=== PATIENT | male | born 1975 | race Caucasian/White ===

== ENCOUNTER 2019-10-07 15:12 | Observation (INO) ==
[2019-10-07] MEDS ORDERED: ACETAMINOPHEN 325 MG TAB PO PRN (18:41)
[2019-10-07] MEDS ORDERED: ONDANSETRON INJ 2 MG/ML 2 ML VIAL IV PRN (18:41)
[2019-10-07] MEDS ORDERED: SODIUM CHLORIDE 0.9% 250 ML IV PRN (18:52)
--- NOTE | 2019-10-07 19:06 | History & Physical Report ---
Date of Service October 07, 2019 Assessment & Plan (1) Anemia: SYmptomatic anemia, etiology uncertain -Check CBC, LFTs, Iron studies, LDH, Haptoglobin, Smear and Reticulocyte count -Check fecal occult blood -Transfuse 2U PRBCs after studies obtained Present on Admission?: Yes (2) Pneumonia: Patient afebrile, hemodynamically stable respiratory status -Ceftriaxone/Azithromycin for presumed CAP -Cultures sent from [facility]. Antibiotic initiated at [facility] Present on Admission?: Yes (3) Opiate addiction: Patient on Methadone 75mg po daily. -Dose to be verified in AM -Continue Methadone Present on Admission?: Yes (4) History of intestinal obstruction: Noted. Patient is eating well and passing gas and BMs. He states that food often transits slowly through his bowels and sometimes feels as if it is getting stuck. He requests a soft diet. -Soft diet -Monitor for obstruction Present on Admission?: Yes (5) Hypertension: Blood pressure stable -Continue Lisinopril 10mg po daily F/E/N - Heplock. Electrolytes WNL. 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 He developed a bowel obstruction at age 27 and another at age 34, both requiring surgical intervention. He was seen at the ER at [facility] today with complaint of SOB/PYLE, fatigue, weakness, malaise, decreased exercise tolerance. He has occasional chest heaviness with exertion. Symptoms have been persistent over the last 3-4 weeks. Today at work he felt like he was having a panic attack. He became SOB and felt like he was going to pass out. His symptoms slowly resolved over time. Additionally, patient has had one week of fevers/chills/cough productive for thick, green sputum as well as night sweats. He was seen by his PCP on Thursday and was prescribed Azithromycin and Prednisone with minimal improvement. He had bloodwork obtained and was later instructed to come to the ER due to low Hgb Allergies Allergy/AdvReac Type Severity Reaction Status Date / Time No Known Allergies Allergy Unverified 08/26/16 07:01 Home Medications Home Medications Medication Instructions Recorded Confirmed Type FEXOFENADINE HCL (BETTY ALLERGY) 1 tab PO DAILY 14 Days #14 tab 08/26/16 10/07/19 History MONTELUKAST SODIUM (SINGULAIR) 10 mg PO DAILY #0 tab 08/26/16 10/07/19 History Methadone Hcl (Dolophine) 75 mg PO DAILY #0 tab 08/26/16 10/07/19 History Trazodone HCl 50 mg PO HS #0 08/26/16 10/07/19 History Miralax 17 packet PO DAILY 10/07/19 10/07/19 History Prilosec 20 mg PO DAILY 10/07/19 10/07/19 History fluoxetine 20 mg PO DAILY 10/07/19 10/07/19 History lisinopril 10 mg PO DAILY 10/07/19 10/07/19 History Past Med/Surg History Medical History (Updated 10/07/19 @ 22:50 by Trudy Miranda DO) Atresia congenital, colon History of intestinal obstruction Hypertension Opiate addiction On Methadone since 2011 Surgical History (Updated 10/07/19 @ 22:40 by Trudy Miranda DO) History of abdominal surgery Family History (Updated 10/07/19 @ 22:40 by Trudy Miranda DO) Sister Anemia Iron deficiency Other Cancer Diabetes Heart disease Hypertension Social History Preferred Language: Lebanese Communication Ability: Effective Commodity Trader Required: No Beliefs That Will Affect Care: None Current Living Situation: Spouse and Family Other Information That Helps Us Care for You: No Feels Safe at Home: Yes Safety Concerns: Feels Safe At This Time Smoking Status: Former smoker Hx Alcohol Use: No Review of Systems Review of Systems: All systems reviewed & are unremarkable except as noted in HPI & below Physical Exam Physical Exam: General: patient resting comfortably, NAD, non-toxic in appearance, AA&O x 4 Skin: warm, dry, intact, no rashes or lesions, +Pallor of skin, conjunctiva and oral mucosa HEENT: NC/AT, PERRL, EOMI, anicteric sclera, conjunctiva without injection, external ear normal to inspection and nontender, nares patent, moist mucus membranes, dentition intact, no oropharyngeal lesions, neck supple, trachea midline, no LAD, no thyromegaly, no JVD Heart: +S1/S2, regular, no r/g, 2/6 NAVID at LSB Lungs: equal air entry bilaterally, no rales/rhonchi/wheezes Abd: +BS, soft, NT/ND, no masses/palpable liver edge, smooth Ext: warm, 2+ pulses in UE/LE bilaterally, no clubbing/cyanosis or edema Neuro: nonfocal, patient AA&O x 4, speech intact, no facial droop, moving all extremities on command with equal strength 5/5 Results & Data Vital Signs (Past 12 Hours) Vital Signs Temp Resp BP Pulse Ox 10/07/19 17:35 37.5 C 16 135/83 99 Laboratory Results Lab Results 10/07/19 10/07/19 10/07/19 Range/Units 19:30 19:31 19:31 Reticulocyte % (Auto) 2.1 H (0.5-2.0) % Reticulocyte # 0.08 (0.02-0.10) 10^6/uL PT 11.4 (9.0-12.0) Seconds INR 1.1 (0.9-1.1) Sodium 137 (136-145) mmol/L Potassium 3.6 (3.5-5.1) mmol/L Chloride 104 (98-107) mmol/L Carbon Dioxide 29 (21-32) mmol/L Anion Gap 4.0 (3-11) BUN 11 (7-18) mg/dl Creatinine 0.95 (0.6-1.4) mg/dl Est Cr Clr Drug Dosing Not Reportable Est GFR ( Amer) 114.0 Est GFR (Non-Af Amer) 98.3 BUN/Creatinine Ratio 11.4 (10-20) Glucose 131 H (70-99) mg/dl Calcium 9.0 (8.5-10.1) mg/dl Phosphorus 3.8 (2.5-4.9) mg/dl Magnesium 2.2 (1.8-2.4) mg/dl Iron 358 H (35-175) mcg/dl TIBC 438 (250-450) mcg/dl Transferrin 286 (200-360) mg/dl Transferrin % Sat 89 H (20-50) % Ferritin 4.5 L (8-388) ng/ml Total Bilirubin 0.8 (0.2-1) mg/dl Direct Bilirubin 0.2 (0-0.2) mg/dl AST 10 L (15-37) U/L ALT 21 (12-78) U/L Alkaline Phosphatase 63 (45-117) U/L Lactate Dehydrogenase (87-241) U/L Troponin I < 0.015 (0-0.045) ng/ml Total Protein 7.9 (6.4-8.2) gm/dl Albumin 3.5 (3.4-5.0) gm/dl Urine Color Urine Appearance (Clear) Urine pH (4.5-7.5) Ur Specific [place] (1.000-1.030) Urine Protein (Negative) Urine Glucose (UA) (Negative) Urine Ketones (Negative) Urine Blood (Negative) Urine Nitrite (Negative) Urine Bilirubin (Negative) Urine Urobilinogen (Negative) Ur Leukocyte Esterase (Negative) Blood Type Blood Type Recheck Antibody Screen Crossmatch 10/07/19 10/07/19 10/07/19 Range/Units 19:31 19:31 20:35 Reticulocyte % (Auto) (0.5-2.0) % Reticulocyte # (0.02-0.10) 10^6/uL PT (9.0-12.0) Seconds INR (0.9-1.1) Sodium (136-145) mmol/L Potassium (3.5-5.1) mmol/L Chloride (98-107) mmol/L Carbon Dioxide (21-32) mmol/L Anion Gap (3-11) BUN (7-18) mg/dl Creatinine (0.6-1.4) mg/dl Est Cr Clr Drug Dosing Est GFR ( Amer) Est GFR (Non-Af Amer) BUN/Creatinine Ratio (10-20) Glucose (70-99) mg/dl Calcium (8.5-10.1) mg/dl Phosphorus (2.5-4.9) mg/dl Magnesium (1.8-2.4) mg/dl Iron (35-175) mcg/dl TIBC (250-450) mcg/dl Transferrin (200-360) mg/dl Transferrin % Sat (20-50) % Ferritin (8-388) ng/ml Total Bilirubin (0.2-1) mg/dl Direct Bilirubin (0-0.2) mg/dl AST (15-37) U/L ALT (12-78) U/L Alkaline Phosphatase (45-117) U/L Lactate Dehydrogenase 156 (87-241) U/L Troponin I (0-0.045) ng/ml Total Protein (6.4-8.2) gm/dl Albumin (3.4-5.0) gm/dl Urine Color Yellow Urine Appearance Clear (Clear) Urine pH 7.0 (4.5-7.5) Ur Specific [place] 1.022 (1.000-1.030) Urine Protein Negative (Negative) Urine Glucose (UA) Negative (Negative) Urine Ketones Negative (Negative) Urine Blood Negative (Negative) Urine Nitrite Negative (Negative) Urine Bilirubin Negative (Negative) Urine Urobilinogen Negative (Negative) Ur Leukocyte Esterase Negative (Negative) Blood Type B Positive Blood Type Recheck Antibody Screen NEGATIVE Crossmatch See Detail 10/07/19 Range/Units 20:43 Reticulocyte % (Auto) (0.5-2.0) % Reticulocyte # (0.02-0.10) 10^6/uL PT (9.0-12.0) Seconds INR (0.9-1.1) Sodium (136-145) mmol/L Potassium (3.5-5.1) mmol/L Chloride (98-107) mmol/L Carbon Dioxide (21-32) mmol/L Anion Gap (3-11) BUN (7-18) mg/dl Creatinine (0.6-1.4) mg/dl Est Cr Clr Drug Dosing Est GFR ( Amer) Est GFR (Non-Af Amer) BUN/Creatinine Ratio (10-20) Glucose (70-99) mg/dl Calcium (8.5-10.1) mg/dl Phosphorus (2.5-4.9) mg/dl Magnesium (1.8-2.4) mg/dl Iron (35-175) mcg/dl TIBC (250-450) mcg/dl Transferrin (200-360) mg/dl Transferrin % Sat (20-50) % Ferritin (8-388) ng/ml Total Bilirubin (0.2-1) mg/dl Direct Bilirubin (0-0.2) mg/dl AST (15-37) U/L ALT (12-78) U/L Alkaline Phosphatase (45-117) U/L Lactate Dehydrogenase (87-241) U/L Troponin I (0-0.045) ng/ml Total Protein (6.4-8.2) gm/dl Albumin (3.4-5.0) gm/dl Urine Color Urine Appearance (Clear) Urine pH (4.5-7.5) Ur Specific [place] (1.000-1.030) Urine Protein (Negative) Urine Glucose (UA) (Negative) Urine Ketones (Negative) Urine Blood (Negative) Urine Nitrite (Negative) Urine Bilirubin (Negative) Urine Urobilinogen (Negative) Ur Leukocyte Esterase (Negative) Blood Type Blood Type Recheck B Positive Antibody Screen Crossmatch FROM [facility]: CXR - no evidence of acute chest abnormality CT Angio Chest, CT Abd and Pelvis - ill-defined nodular ground-glass infiltrate in LLL and lingula concerning for infectious process. Dilated small bowel loops in min abdomen with abrupt transition along the anterior abdominal wall in the infraumbilical region suggesting anterior abdominal wall adhesions. Less prominent than previous study. No retained contrast in small bowel. Stable left supraumbilical hernia. No hematoma or ascites. Hgb on 06/24/17 - 11.5 Hgb today - 5.5, Hct=22, MCV=60.6, Emm=536 Lactate = 2.2 ESR = 10 Flu=negative Diagnostic Findings XR chest 1V portable HISTORY: 44 years-old Male SOB acute shortness of breath COMPARISON: CTA of the chest of same day from outside hospital TECHNIQUE: Portable AP view of the chest FINDINGS: Cardiac silhouette is normal. Patchy left basilar opacities are better seen on comparison CTA. No pneumothorax, pleural effusion or overt pulmonary edema. The right lung is clear. Bones appear grossly intact. IMPRESSION: Patchy left basilar opacities redemonstrated suggestive of pneumonia. ACT 112: Negative or not required by law. The above report was generated using voice recognition software. It may contain grammatical, syntax or spelling errors. Electronically signed by: Riki Melara M.D. 10/07/2019 7:43 PM Dictated: 10/07/191937 Transcribed: 10/07/191937 ECG Additional Comments: NSR at 67, normal axis and intervals, no acute ischemic changes, no prior studies for comparison Code Status & VTE Plan Code Status FULL VTE Prophylaxis Plan VTE Prophylaxis will be ordered: No Reason for no VTE drug order: Treatment not indicated Reason for no VTE mechanical prophylaxis: Treatment not indicated PG Care Time/CCT Total # of Minutes Spent Total Time Spent with Patient: Total time spent is greater than 50% in coordination of care (as documented) at patient's floor/unit and/or counseling patient: Coding Level of Care Code 97748 Initial Inpt Care Lvl 3 Diagnoses Anemia D64.9 Anemia type: unspecified type Pneumonia J18.9 Pneumonia type: due to unspecified organism Laterality: left Lung location: lower lobe of lung Opiate addiction F11.21 Substance use status: in remission History of intestinal obstruction Z87.19 Hypertension I10 Hypertension type: unspecified (1) Anemia Anemia type: unspecified type Qualified Code(s): D64.9 - Anemia, unspecified (2) Pneumonia Pneumonia type: due to unspecified organism Laterality: left Lung location: lower lobe of lung Qualified Code(s): J18.9 - Pneumonia, unspecified organism (3) Opiate addiction Substance use status: in remission Qualified Code(s): F11.21 - Opioid dependence, in remission (4) Hypertension Hypertension type: unspecified Qualified Code(s): I10 - Essential (primary) hypertension
--- NOTE | 2019-10-07 19:44 | XRay Report ---
XR chest 1V portable HISTORY: 44 years-old Male SOB acute shortness of breath COMPARISON: CTA of the chest of same day from outside hospital TECHNIQUE: Portable AP view of the chest FINDINGS: Cardiac silhouette is normal. Patchy left basilar opacities are better seen on comparison CTA. No pne umothorax, pleural effusion or overt pulmonary edema. The right lung is clear. Bones appear grossly i ntact. IMPRESSION: Patchy left basilar opacities redemonstrated suggestive of pneumonia. ACT 112: Negative or not required by law. The above report was generated using voice recognition software. It may contain grammatical, syntax o r spelling errors. Electronically signed by: Riki Melara M.D. 10/07/2019 7:43 PM
[2019-10-07 19:53] LABS: INR 1.1 (0.9-1.1); Prothrombin Time 11.4 Seconds (9.0-12.0)
[2019-10-07 20:00] LABS: Alanine Aminotransferase 21 U/L (12-78); Albumin Level 3.5 gm/dl (3.4-5.0); Aspartate Aminotransferase 10 U/L (15-37); BUN Creatinine Ratio 11.4 (10-20); Bilirubin Direct 0.2 mg/dl (0-0.2); Blood Urea Nitrogen 11 mg/dl (7-18); Carbon Dioxide 29 mmol/L (21-32); Chloride 104 mmol/L (98-107); Est GFR (Non-African American) 98.3; Glucose 131 mg/dl (70-99); Magnesium 2.2 mg/dl (1.8-2.4); Phosphorus 3.8 mg/dl (2.5-4.9); Potassium 3.6 mmol/L (3.5-5.1); Sodium 137 mmol/L (136-145)
[2019-10-07 20:03] LABS: Alkaline Phosphatase 63 U/L (45-117); Bilirubin,Total 0.8 mg/dl (0.2-1); Ferritin 4.5 ng/ml (8-388); Iron 358 mcg/dl (35-175); Total Iron Binding Capacity 438 mcg/dl (250-450); Total Protein 7.9 gm/dl (6.4-8.2); Transferrin 286 mg/dl (200-360); Transferrin Percent Saturation 89 % (20-50); Troponin I < 0.015 ng/ml (0-0.045)
[2019-10-07 20:08] LABS: Reticulocyte % 2.1 % (0.5-2.0); Reticulocytes # 0.08 10^6/uL (0.02-0.10)
[2019-10-07 20:47] LABS: Appearance Urine Clear (Clear); Bilirubin Urine Negative (Negative); Blood Urine Negative (Negative); Color Urine Yellow; Glucose Urine UA Negative (Negative); Ketones Urine Negative (Negative); Leukocyte Esterase Urine Negative (Negative); Nitrite Urine Negative (Negative); Protein Urine Negative (Negative); Specific Gravity Urine 1.022 (1.000-1.030); Urobilinogen Urine Negative (Negative)
[2019-10-07] MEDS ORDERED: TRAZODONE HCL 50 MG TAB PO SCH (21:00)
[2019-10-08 07:34] LABS: Hematocrit (blood only) 27.6 % (42-52); Hemoglobin 7.9 g/dL (14.0-18.0); Mean Corpuscular Hemoglobin 18.3 pg (25-34); Mean Corpuscular Hgb Conc 28.6 g/dL (32-36); Mean Platelet Volume 8.8 fL (7.4-10.4); Nucleated RBC # (auto) 0.07 K/uL (0-0); Nucleated RBC % (auto) 1.3 %; Platelet Count 428 K/uL (130-400); RDW Coefficient of Variation 26.1 % (11.5-14.5); RDW Standard Deviation 59.2 fL (36.4-46.3); Red Blood Count 4.31 M/uL (4.7-6.1); White Blood Count 5.55 K/uL (4.8-10.8)
[2019-10-08 07:46] LABS: Basophils # (auto) 0.02 K/uL (0-0.2); Basophils % (auto) 0.4 %; Eosinophils # (auto) 0.16 K/uL (0-0.5); Eosinophils % (auto) 2.9 %; Hypochromasia Present; Immature Granulocytes # (auto) 0.02 K/uL (0.00-0.02); Immature Granulocytes % (auto) 0.4 %; Lymphocytes # (auto) 1.47 K/uL (1.2-3.4); Lymphocytes % (auto) 26.5 %; Microcytosis Present; Monocytes # (auto) 0.71 K/uL (0.11-0.59); Monocytes % (auto) 12.8 %; Neutrophils # (auto) 3.17 K/uL (1.4-6.5); Schistocytes 1+
[2019-10-08] MEDS ORDERED: cefTRIAXone SODIUM 1,000 MG in DEXTROSE 5% 50 ML IV SCH (09:00)
[2019-10-08] MEDS ORDERED: METHADONE ORAL SOLN 2 MG/ML PO SCH (09:00)
[2019-10-08] MEDS ORDERED: FLUOXETINE HCL 20 MG CAP PO SCH (09:00)
[2019-10-08] MEDS ORDERED: METHADONE HCL 10 MG TAB PO SCH (09:00)
[2019-10-08] MEDS ORDERED: PANTOprazole 40 MG TAB PO SCH (09:00)
[2019-10-08] MEDS ORDERED: AZITHROMYCIN 250 MG in DEXTROSE 5% 250 ML IV SCH (09:00)
[2019-10-08] MEDS ORDERED: POLYETHYLENE (MIRALAX) 17 GM PACK PO SCH (09:00)
[2019-10-08] MEDS ORDERED: MONTELUKAST SODIUM 10 MG TABLET PO SCH (09:00)
[2019-10-08] MEDS ORDERED: lisinopriL 10 MG TAB PO SCH (09:00)
[2019-10-08] MEDS ORDERED: FEXOFENADINE HCL 180 MG TAB PO SCH ×2 (09:00→21:00)
--- NOTE | 2019-10-08 13:17 | Gastrointestinal Consultation ---
Date of Consultation October 08, 2019 Assessment & Plan (1) Anemia: Chronic iron deficiency anemia without clear evidence of blood loss. Appropriate response to transfusion and Iron infusion already given. His diet is not restricted. Suggest out patient evaluation for chronic blood loss: EGD/SBE and a colonoscopy. Work up for malabsorption syndromes like celiac disease. Present on Admission?: Yes History of Present Illness Attending Physician: Karishma Leavitt MD History of Present Illness Patient with history of duodenal atresia and bowel obstruction, has been as base line for many months, presented with symptomatic anemia, out patient Hb reported 5.5 and was called in to [facility] for evaluation. Given Iv Iron 200 mg. After transfusions at [facility] he feels much better. No melena, hematochezia. Takes multivitamins without iron routinely. No history of celiac disease. Not on a very restricted diet. Has limited green leafy intake due to obstructive symptoms with these in the past. Allergies Allergy/AdvReac Type Severity Reaction Status Date / Time No Known Allergies Allergy Unverified 08/26/16 07:01 Home Medications Home Medications Medication Instructions Recorded Confirmed Type FEXOFENADINE HCL (BETTY ALLERGY) 1 tab PO DAILY 14 Days #14 tab 08/26/16 10/07/19 History MONTELUKAST SODIUM (SINGULAIR) 10 mg PO DAILY #0 tab 08/26/16 10/07/19 History Methadone Hcl (Dolophine) 75 mg PO DAILY #0 tab 08/26/16 10/07/19 History Trazodone HCl 50 mg PO HS #0 08/26/16 10/07/19 History Miralax 17 packet PO DAILY 10/07/19 10/07/19 History Prilosec 20 mg PO DAILY 10/07/19 10/07/19 History fluoxetine 20 mg PO DAILY 10/07/19 10/07/19 History lisinopril 10 mg PO DAILY 10/07/19 10/07/19 History Patient History Medical History Atresia congenital, colon History of intestinal obstruction Hypertension Opiate addiction On Methadone since 2011 Surgical History (Updated 10/07/19 @ 22:40 by Trudy Miranda DO) History of abdominal surgery Family History (Updated 10/07/19 @ 22:40 by Trudy M Ruben, DO) Sister Anemia Iron deficiency Other Cancer Diabetes Heart disease Hypertension Social History Preferred Language: Hungarian Communication Ability: Effective Lock Operator Required: No Beliefs That Will Affect Care: None Current Living Situation: Spouse and Family Other Information That Helps Us Care for You: No Feels Safe at Home: Yes Safety Concerns: Feels Safe At This Time Smoking Status: Former smoker Hx Alcohol Use: No Review of Systems Review of Systems: All systems reviewed & are unremarkable except as noted in HPI & below Gastrointestinal: no abdominal pain, no bloating, no nausea, no vomiting, no coffee ground emesis, no hematemesis, no change in stools, no blood in stools and no melena Physical Exam Constitutional: WD/WN, vitals as above well developed, well nourished and average body habitus; no acute distress and not ill appearing ENMT: external ear and nose normal, oropharynx normal Cold sores on lower lip Respiratory: normal respiratory effort, lungs clear to auscultation no labored breathing Cardiovascular: RRR, no murmur, no edema Gastrointestinal (Abdomen): Inspection/Auscultation: normal bowel sounds and + abdominal surgical scar; abdomen not distended Percussion/Palpation: abdomen soft; abdomen nontender and no ascites Skin: no rashes, warm and dry Psychiatric: Orientation: alert Speech: normal rate/rhythm/volume of speech Affect: euthymic affect Lymphatic: no cervical lymphadenopathy Results & Data Vital Signs (Past 12 Hours) Vital Signs Temp Pulse Pulse Resp BP BP Pulse Ox 10/08/19 08:34 36.7 C 68 18 136/83 99 10/08/19 04:38 36.9 C 73 18 118/83 96 10/08/19 03:57 36.9 C 66 16 136/73 97 10/08/19 02:57 36.8 C 58 L 14 125/68 97 10/08/19 02:23 36.9 C 58 L 16 136/74 96 10/08/19 02:08 36.9 C 58 L 18 125/75 98 10/08/19 01:50 36.8 C 54 L 14 123/71 97 Laboratory Results Lab Results 10/07/19 10/07/19 10/07/19 Range/Units 19:30 19:31 19:31 Reticulocyte % (Auto) 2.1 H (0.5-2.0) % Reticulocyte # 0.08 (0.02-0.10) 10^6/uL PT 11.4 (9.0-12.0) Seconds INR 1.1 (0.9-1.1) Sodium 137 (136-145) mmol/L Potassium 3.6 (3.5-5.1) mmol/L Chloride 104 (98-107) mmol/L Carbon Dioxide 29 (21-32) mmol/L Anion Gap 4.0 (3-11) BUN 11 (7-18) mg/dl Creatinine 0.95 (0.6-1.4) mg/dl Est Cr Clr Drug Dosing Not Reportable Est GFR ( Amer) 114.0 Est GFR (Non-Af Amer) 98.3 BUN/Creatinine Ratio 11.4 (10-20) Glucose 131 H (70-99) mg/dl Calcium 9.0 (8.5-10.1) mg/dl Phosphorus 3.8 (2.5-4.9) mg/dl Magnesium 2.2 (1.8-2.4) mg/dl Iron 358 H (35-175) mcg/dl TIBC 438 (250-450) mcg/dl Transferrin 286 (200-360) mg/dl Transferrin % Sat 89 H (20-50) % Ferritin 4.5 L (8-388) ng/ml Total Bilirubin 0.8 (0.2-1) mg/dl Direct Bilirubin 0.2 (0-0.2) mg/dl AST 10 L (15-37) U/L ALT 21 (12-78) U/L Alkaline Phosphatase 63 (45-117) U/L Lactate Dehydrogenase (87-241) U/L Troponin I < 0.015 (0-0.045) ng/ml Total Protein 7.9 (6.4-8.2) gm/dl Albumin 3.5 (3.4-5.0) gm/dl Urine Color Urine Appearance (Clear) Urine pH (4.5-7.5) Ur Specific [place] (1.000-1.030) Urine Protein (Negative) Urine Glucose (UA) (Negative) Urine Ketones (Negative) Urine Blood (Negative) Urine Nitrite (Negative) Urine Bilirubin (Negative) Urine Urobilinogen (Negative) Ur Leukocyte Esterase (Negative) Blood Type Blood Type Recheck Antibody Screen Crossmatch 10/07/19 10/07/19 10/07/19 Range/Units 19:31 19:31 20:35 Reticulocyte % (Auto) (0.5-2.0) % Reticulocyte # (0.02-0.10) 10^6/uL PT (9.0-12.0) Seconds INR (0.9-1.1) Sodium (136-145) mmol/L Potassium (3.5-5.1) mmol/L Chloride (98-107) mmol/L Carbon Dioxide (21-32) mmol/L Anion Gap (3-11) BUN (7-18) mg/dl Creatinine (0.6-1.4) mg/dl Est Cr Clr Drug Dosing Est GFR ( Amer) Est GFR (Non-Af Amer) BUN/Creatinine Ratio (10-20) Glucose (70-99) mg/dl Calcium (8.5-10.1) mg/dl Phosphorus (2.5-4.9) mg/dl Magnesium (1.8-2.4) mg/dl Iron (35-175) mcg/dl TIBC (250-450) mcg/dl Transferrin (200-360) mg/dl Transferrin % Sat (20-50) % Ferritin (8-388) ng/ml Total Bilirubin (0.2-1) mg/dl Direct Bilirubin (0-0.2) mg/dl AST (15-37) U/L ALT (12-78) U/L Alkaline Phosphatase (45-117) U/L Lactate Dehydrogenase 156 (87-241) U/L Troponin I (0-0.045) ng/ml Total Protein (6.4-8.2) gm/dl Albumin (3.4-5.0) gm/dl Urine Color Yellow Urine Appearance Clear (Clear) Urine pH 7.0 (4.5-7.5) Ur Specific [place] 1.022 (1.000-1.030) Urine Protein Negative (Negative) Urine Glucose (UA) Negative (Negative) Urine Ketones Negative (Negative) Urine Blood Negative (Negative) Urine Nitrite Negative (Negative) Urine Bilirubin Negative (Negative) Urine Urobilinogen Negative (Negative) Ur Leukocyte Esterase Negative (Negative) Blood Type B Positive Blood Type Recheck Antibody Screen NEGATIVE Crossmatch See Detail 10/07/19 Range/Units 20:43 Reticulocyte % (Auto) (0.5-2.0) % Reticulocyte # (0.02-0.10) 10^6/uL PT (9.0-12.0) Seconds INR (0.9-1.1) Sodium (136-145) mmol/L Potassium (3.5-5.1) mmol/L Chloride (98-107) mmol/L Carbon Dioxide (21-32) mmol/L Anion Gap (3-11) BUN (7-18) mg/dl Creatinine (0.6-1.4) mg/dl Est Cr Clr Drug Dosing Est GFR ( Amer) Est GFR (Non-Af Amer) BUN/Creatinine Ratio (10-20) Glucose (70-99) mg/dl Calcium (8.5-10.1) mg/dl Phosphorus (2.5-4.9) mg/dl Magnesium (1.8-2.4) mg/dl Iron (35-175) mcg/dl TIBC (250-450) mcg/dl Transferrin (200-360) mg/dl Transferrin % Sat (20-50) % Ferritin (8-388) ng/ml Total Bilirubin (0.2-1) mg/dl Direct Bilirubin (0-0.2) mg/dl AST (15-37) U/L ALT (12-78) U/L Alkaline Phosphatase (45-117) U/L Lactate Dehydrogenase (87-241) U/L Troponin I (0-0.045) ng/ml Total Protein (6.4-8.2) gm/dl Albumin (3.4-5.0) gm/dl Urine Color Urine Appearance (Clear) Urine pH (4.5-7.5) Ur Specific [place] (1.000-1.030) Urine Protein (Negative) Urine Glucose (UA) (Negative) Urine Ketones (Negative) Urine Blood (Negative) Urine Nitrite (Negative) Urine Bilirubin (Negative) Urine Urobilinogen (Negative) Ur Leukocyte Esterase (Negative) Blood Type Blood Type Recheck B Positive Antibody Screen Crossmatch [facility]: CXR - no evidence of acute chest abnormality CT Angio Chest, CT Abd and Pelvis - ill-defined nodular ground-glass infiltrate in LLL and lingula concerning for infectious process. Dilated small bowel loops in min abdomen with abrupt transition along the anterior abdominal wall in the infraumbilical region suggesting anterior abdominal wall adhesions. Less prominent than previous study. No retained contrast in small bowel. Stable left supraumbilical hernia. No hematoma or ascites. Hgb on 06/24/17 - 11.5 Hgb today - 5.5, Hct=22, MCV=60.6, [id number] Lactate = 2.2 ESR = 10 Flu=negative (1) Anemia Anemia type: unspecified type Qualified Code(s): D64.9 - Anemia, unspecified
--- NOTE | 2019-10-08 16:06 | Discharge Summary ---
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 He developed a bowel obstruction at age 27 and another at age 34, both requiring surgical intervention. He was seen at the ER at [facility] today with complaint of SOB/PYLE, fatigue, weakness, malaise, decreased exercise tolerance. He has occasional chest heaviness with exertion. Symptoms have been persistent over the last 3-4 weeks. Today at work he felt like he was having a panic attack. He became SOB and felt like he was going to pass out. His symptoms slowly resolved over time. Additionally, patient has had one week of fevers/chills/cough productive for thick, green sputum as well as night sweats. He was seen by his PCP on Thursday and was prescribed Azithromycin and Prednisone with minimal improvement. He had bloodwork obtained and was later instructed to come to the ER due to low Hgb Principal Diagnosis Severe symptomatic anemia, Pneumonia Discharge Exam Constitutional WD/WN, vitals as above Eyes + anicteric sclerae Neck trachea midline, no thyromegaly Respiratory normal respiratory effort, lungs clear to auscultation Cardiovascular RRR, no murmur, no edema Chest (Breasts) Chest: normal inspection of chest Gastrointestinal (Abdomen) Inspection/Auscultation: normal bowel sounds; + abdomen abnormal to inspection (multiple surgical scars) Percussion/Palpation: abdomen soft; abdomen nontender, no guarding, abdomen not rigid and no hepatosplenomegaly Musculoskeletal Extremities: extremities normal to inspection; no cyanosis and no clubbing Skin + lesion (left lower lip with several scabbed over vesicular lesions) Neurologic moves all extremities and awake; no focal motor deficits Psychiatric A+Ox3, euthymic affect Lymphatic no lymphedema Discharge Data Allergies Allergy/AdvReac Type Severity Reaction Status Date / Time No Known Allergies Allergy Unverified 08/26/16 07:01 Consultations 10/08/19 10:57 Consult Gastroenterology Routine Ordered Studies CXR Hospital Course (1) Anemia: SYmptomatic anemia, severe iron deficiency, ferritin 4.5. Serum Fe high only because he received IV iron infusion at [facility] prior to checking labs here Hgb 5.5 at outside faiclity and given 2 units PRBCs here, cam eup to 7.9. 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 COuld be occult bleeding also Needs outpt EGD and colonoscopy with [facility] Stable for discharge Recommend checking CBC once weekly with PCP until improves and stabilizes. -can take FeSO4 pills 3x/week as tolerated but due to chronic GI issues with constipation, waned that this could get worse with Fe tabs (2) Pneumonia: Patient afebrile, hemodynamically stable respiratory status had left lower lobe infiltrate on Chest CT Improved cough Already completed 5 days of azithro -received IV ceftriaxone x 1 dose and will finish out course with cefdinir 300mg po bid x 6 more days -Cultures sent from [facility].PCP can f/u on blood cultures final from [facility] (3) Opiate addiction: Patient on Methadone 75mg po daily. -Continue Methadone (4) History of intestinal obstruction: Noted. Patient is eating well and passing gas and BMs. He states that food often transits slowly through his bowels and sometimes feels as if it is getting stuck. He requests a soft diet. -Soft diet, low fiber diet -Monitor for obstruction-none noted prior to discharge (5) Hypertension: Blood pressure stable -Continue Lisinopril 10mg po daily DVT-low risk Dispo - stable for dc to home Total Time Total Time Spent Total Time Spent (In Minutes): 35 min Total Time Includes: Examination of the Patient, Discharge Planning, Medication Reconciliation and Communication With Other Providers (Gastroenterology) Discharge Plan Discharge Items Patient Disposition: Home - Self-Care Reason For Visit: SYMPTOMATIC ANEMIA Discharge Diagnosis: Symptomatic anemia, Pneumonia Condition on Discharge: Fair Activity: As commented below Lifting: Gradually increase as tolerated Bathing: No limitations Exercise/Sports: Gradually increase as tolerated Driving/Machine Use: Resume 3 days after discharge Weightbearing: Full weightbearing Non-emergency contact: Primary Care Provider and [employer] Call non-emergency contact if: you have any medication questions, your symptoms worsen and your temperature is above 101 Follow-up/Referrals: Noble Fontenot [Physician] - (Please call for a hospital follow up appointment and to get scheduled for EGD and Colonoscopy. ) PCP,NO [Primary Care Provider] - Diet: Low Fiber Diet Comment: Iron-rich foods Addtl Attending Provider Instructions: You were admitted with shortness of breath and cough secondary to severe iron deficiency anemia and pneumonia. You were given IV iron infusion and transfused with red blood. The anemia may be coming from either poor iron intake, poor iron absorption, or a slow leak of blood (and therefore loss of iron) in your GI tract. If you can tolerate taking an iron supplement, you could try this 3x/week but it may cause constipation. You should increase iron-rich foods in your diet. Have your PCP check your CBC (complete blood count) once weekly for a few weeks to ensure that your blood count is continuing to rise back up. Please call [facility] Gastroenterology office, Dr. Noble Fontenot, to schedule to have your EGD and colonoscopy as recommended here by Dr. Butler. For your pneumonia in the left lung, please finish out the course of cefdinir x 6 more days. Follow up with your PCP, Dr. Mcclain, within 1 week. Pending Studies at Discharge: No Stand-Alone Forms: My [facility] Medications and DC Order Prescriptions: New cefdinir 300 mg capsule 300 mg PO BID Qty: 12 RF: 0 Slow Fe 142 mg (45 mg iron) tablet extended release 142 mg PO 3XWK Qty: 30 RF: 0 Continued MONTELUKAST SODIUM (SINGULAIR) 10 MG tablet 10 mg PO DAILY Qty: 0 RF: 0 Methadone Hcl (Dolophine) tablet 75 mg PO DAILY Qty: 0 RF: 0 FEXOFENADINE HCL (BETTY ALLERGY) 180 MG tablet 1 tab PO DAILY 14 Days Qty: 14 RF: 2 Trazodone HCl tablet 50 mg PO HS Qty: 0 RF: 0 lisinopril 10 mg tablet 10 mg PO DAILY RF: 0 fluoxetine 20 mg capsule 20 mg PO DAILY RF: 0 Miralax 17 packet PO DAILY RF: 0 Prilosec 20 mg PO DAILY RF: 0 Discharge Orders: Discharge Order (Routine); Ordered 10/08/19 Ordered By: Karishma Leavitt Admission Data Admit Date/Time: 10/07/19 17:40 Attending Provider: Karishma Leavitt Admit Provider: Trudy Miranda Primary Care Provider: PCP,NO Other Providers: Luke,Jenaro Coding Level of Care Code D/C Day Management >30 mins Diagnoses Anemia D64.9 Anemia type: unspecified type Pneumonia J18.9 Pneumonia type: due to unspecified organism Laterality: left Lung location: lower lobe of lung Opiate addiction F11.21 Substance use status: in remission History of intestinal obstruction Z87.19 Hypertension I10 Hypertension type: unspecified
--- NOTE | 2019-10-08 17:10 | Electrocardiogram Report ---
Test Reason : Blood Pressure : / mmHG Vent. Rate : 067 BPM Atrial Rate : 067 BPM P-R Int : 158 ms QRS Dur : 078 ms QT Int : 404 ms P-R-T Axes : 053 062 052 degrees QTc Int : 426 ms Normal sinus rhythm Normal ECG No previous ECGs available Confirmed by Yayo Hernandez ([id number]) on 10/08/2019 5:10:25 PM Referred By: Trudy Miranda Confirmed By:Yayo Hernandez
== END 2019-10-08 17:18 | disposition home or self-care (01) ==
LOC: INTOOBSV 17:40 → 3W 17:40 → SUATTDRO 17:40 → 3W 22:18